=== PATIENT | female | born 1960 ===

== ENCOUNTER 2018-06-03 13:09 | Observation (INO) | payer OTHER ==
[2018-06-03] MEDS ORDERED: Sodium Chloride 0.9% 1,000 ML IV STA (14:17)
--- NOTE | 2018-06-03 14:28 | ED PDOC ---
Syncope/Near Syncope/Dizziness Time Seen by Provider: 06/03/18 13:38 Chief Complaint (Nursing): Dizziness/Lightheaded Chief Complaint (Provider): Dizziness/Lightheaded History Per: Patient History/Exam Limitations: no limitations Onset/Duration Of Symptoms: Persistent (x2 weeks) Current Symptoms Are (Timing): Still Present Additional Complaint(s): 58 year old female arrives to ED with complaints of dizziness, excessive thirst , urine frequency, cough and congestion ongoing for 2 weeks. Patient states she returned from vacation in [place] on 05/29/18 but had an URI with congestion that required saline nebulizer to expectorate during stay. He denies any fever, chest pain, shortness of breath, back pain or dysuria. Of note, patient states she was diagnosed with pre-diabetes in the past but does not take medications for it. PMD: Dr. Royal Azevedo Past Medical History Reviewed: Historical Data, Nursing Documentation, Vital Signs Vital Signs: Last Vital Signs Temp 98.8 F 06/03/18 13:14 Pulse 104 H 06/03/18 13:14 Resp 20 06/03/18 13:14 BP 145/92 H 06/03/18 13:14 Pulse Ox 96 06/03/18 13:14 - Medical History PMH: HTN - Surgical History Surgical History: Denies: No Surg Hx Other surgeries: back cyst removed - Family History Family History: States: Unknown Family Hx - Home Medications Home Medications: Ambulatory Orders Medication Instructions Recorded Olmesartan/Hydrochlorothiazide 1 tab PO DAILY 06/03/18 [Benicar Hct 40-12.5 mg Tablet] - Allergies Allergies/Adverse Reactions: Allergies Allergy/AdvReac Type Severity Reaction Status Date / Time No Known Allergies Allergy Verified 06/03/18 13:16 Review of Systems ROS Statement: Except As Marked, All Systems Reviewed And Found Negative Constitutional: Negative for: Fever ENT: Positive for: Nose Congestion, Other (excessive thirst) Cardiovascular: Negative for: Chest Pain Respiratory: Positive for: Cough. Negative for: Shortness of Breath Genitourinary Female: Positive for: Frequency. Negative for: Dysuria Musculoskeletal: Negative for: Back Pain Neurological: Positive for: Dizziness Physical Exam - Reviewed Nursing Documentation Reviewed: Yes Vital Signs Reviewed: Yes - Physical Exam Appears: Positive for: No Acute Distress Head Exam: Positive for: ATRAUMATIC, NORMAL INSPECTION, NORMOCEPHALIC Skin: Positive for: Normal Color Eye Exam: Positive for: Normal appearance, EOMI, PERRL ENT: Positive for: Other (mild dehydration; dentures) Neck: Positive for: Normal Cardiovascular/Chest: Positive for: Tachycardia (mild) Respiratory: Positive for: Normal Breath Sounds. Negative for: Respiratory Distress Gastrointestinal/Abdominal: Positive for: Normal Exam, Soft. Negative for: Tenderness Extremity: Positive for: Normal ROM (upper/lower). 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 Negative for: Motor/Sensory Deficits - Laboratory Results Result Diagrams: 06/03/18 14:29 06/03/18 14:29 - ECG ECG: Positive for: Interpreted By Me ECG Rhythm: Positive for: Sinus Rhythm, ST/T Changes, Nonspecific Changes Rate: 83 O2 Sat by Pulse Oximetry: 96 (RA) Pulse Ox Interpretation: Normal Medical Decision Making Medical Decision Making: Initial Impression: 58 year old female with dizziness, urine frequency, and polydipsia. Initial Plan: --W/u with IV fluid, EKG, labs, CXR, Accucheck and UA for metabolic syndrome Time: 1419 --Accucheck: 423mg/dL. --CXR: no significant findings. --AG 19 BUN 22 CO2 17 c/w dehydration --UA neg WBC or leuks IVF and insulin initiated PMD Dr Azevedo contacted for disposition D/w resident Dr Marcial for obs admission for glycemic control and diabetic meds initiation Scribe Attestation: Documented by Melida Shaw, acting as a scribe for Aman Hunter III, DO. Provider Scribe Attestation: All medical record entries made by the Scribe were at my direction and personally dictated by me. I have reviewed the chart and agree that the record accurately reflects my personal performance of the history, physical exam, medical decision making, and the department course for this patient. I have also personally directed, reviewed, and agree with the discharge instructions and disposition. Disposition - Clinical Impression Clinical Impression: Diabetes mellitus, new onset, Dizziness, Dehydration, Hyperglycemia - Patient ED Disposition Is Patient to be Admitted: Yes Counseled Patient/Family Regarding: Studies Performed, Diagnosis, Need For Followup - Disposition Disposition Time: 15:10 Condition: STABLE - Pt Status Changed To: Hospital Disposition Of: Observation - POA Present On Arrival: Poor Glycemic Control
[2018-06-03 14:36] LABS: BASO # 0.2 K/uL (0.0-0.2); BASO % 1.3 % (0.0-2.0); EOS # 0.1 K/uL (0.0-0.7); EOS % 0.8 % (0.0-4.0); HEMOGLOBIN 15.8 g/dL (12.0-16.0); LYMPH # 3.3 K/uL (1.0-4.3); LYMPH % 24.2 % (20.0-40.0); MEAN CELL VOLUME 87.2 fl (81.0-99.0); MEAN CORPUSCULAR HEMOGLOBIN 29.1 pg (27.0-31.0); MEAN CORPUSCULAR HGB CONC 33.3 g/dL (33.0-37.0); MEAN PLATELET VOLUME 11.8 fl (7.2-11.7); MONO # 0.9 K/uL (0.0-0.8); MONO % 6.6 % (0.0-10.0); NEUT # 9.1 K/uL (1.8-7.0); NEUT % 67.1 % (50.0-75.0); NRBC % 0.1 % (0.0-0.0); RBC 5.43 Mil/uL (3.80-5.20); RED CELL DISTRIBUTION WIDTH 14.8 % (11.5-14.5); WHITE BLOOD COUNT 13.6 K/uL (4.8-10.8)
[2018-06-03 14:49] LABS: SQUAMOUS EPITHIAL < 1 /hpf (0-5); URINE BILIRUBIN NEGATIVE (NEGATIVE); URINE BLOOD NEGATIVE (NEGATIVE); URINE CLARITY CLEAR (Clear); URINE COLOR YELLOW (YELLOW); URINE GLUCOSE (UA) >=500 mg/dL (Normal); URINE LEUKOCYTE ESTERASE NEG Leu/uL (Negative); URINE PROTEIN NEGATIVE (NEGATIVE); URINE UROBILINOGEN 0.2-1.0 mg/dL (0.2-1.0)
[2018-06-03 14:54] LABS: BLOOD UREA NITROGEN 22 mg/dl (7-17)
[2018-06-03 14:55] LABS: ALB/GLOB RATIO 1.3 (1.0-2.1); ALBUMIN 4.1 g/dL (3.5-5.0); ALT/SGPT 75 U/L (9-52); AST/SGOT 47 U/L (14-36); CALCIUM 9.2 mg/dL (8.4-10.2); GFR AFRICAN-AMERICAN > 60; GFR NON-AFRICAN AMERICAN > 60
[2018-06-03] MEDS ORDERED: Insulin Regular 100 units/ml IVP ONE (14:59)
[2018-06-03] MEDS ORDERED: Insulin Regular 100 units/ml ONE (15:16)
--- NOTE | 2018-06-03 15:31 | RAD ---
Date of service: 06/03/2018 HISTORY: chest pain/ r/o infiltrate COMPARISON: No prior. TECHNIQUE: Chest PA and lateral FINDINGS: LUNGS: No active pulmonary disease. PLEURA: No significant pleural effusion identified. No pneumothorax apparent. CARDIOVASCULAR: No radiographic findings to suggest acute or significant cardiovascular disease. OSSEOUS STRUCTURES: No significant abnormalities. VISUALIZED UPPER ABDOMEN: Normal. OTHER FINDINGS: None. IMPRESSION: No active disease.
[2018-06-03] MEDS ORDERED: Sodium Chloride 0.9% 1,000 ML IV SCH ×2 (16:45→17:37)
[2018-06-03] MEDS ORDERED: Glucagon Recombinant 1 mg Inj IM PRN (17:00)
[2018-06-03] MEDS ORDERED: Dextrose 50% SYRINGE Inj (50 ml) IV PRN (17:00)
--- NOTE | 2018-06-03 17:24 | CP.PCM.HP ---
<Deon Segura - Last Filed: 06/03/18 17:47> History of Present Illness - History of Present Illness History of Present Illness: This is 58 y/o F with PMH of HTN admitted for evaluation and treatment of 3 days history of polyuria and polydipsia. Patient reports no history of Diabetes , polyuria and polydipsia is something new for the patient which is associated with dizziness and weakness. Patient also reports b/l LEs crampping which started around same time as polyuria and polydipsia. Patient denies any LOC, Seizures, chest pain, SOB, abdominal pain, or dysuria. Denies any f/c/n/v/d, sick contact, patient recent travelled to [place], 2 weeks ago where she had URI like symptoms. PMD: Dr. Azevedo PMH: HTN PSH: Cervical lymphadenectomy Allg: NKDA Meds: Benicar 12.5mg daily FH: Denies any FH of DM, HTN or cancers SH: Smokes 6 cig/day since last 30 years. Denies any alcohol or illicit drug use Full Code Emergency contact: Son, Jovani Guan # [phone] ROS: As per HPI ED Course: VS: 145/92, 104HR, Tm 98.8, RR 20, Spo2 96% CBC: WBC 13.6 CMP: 133/4.4. 97/21, 22/0.8, 423 UA neative EKG: Prelim: NSR, Nonspecific ST changes CXR: No acute disease S/p IVF, Insulin 4 U Present on Admission - Present on Admission Any Indicators Present on Admission: No Past Patient History - Past Social History Smoking Status: Light Smoker < 10 Cigarettes Daily - CARDIAC Hx Hypertension: Yes - PSYCHIATRIC Hx Substance Use: No - SURGICAL HISTORY Hx Surgeries: Yes - ANESTHESIA Hx Anesthesia: Yes Hx Anesthesia Reactions: No Meds Home Medications: Home Medication List Medication Instructions Recorded Confirmed Type MetFORMIN [glucoPHAGE] 500 mg PO BID 30 Days #60 tab 06/04/18 Rx Allergies/Adverse Reactions: Allergies Allergy/AdvReac Type Severity Reaction Status Date / Time No Known Allergies Allergy Verified 06/03/18 13:16 Physical Exam - Constitutional Appears: No Acute Distress - Head Exam Head Exam: NORMAL INSPECTION - Eye Exam Eye Exam: EOMI, Normal appearance, PERRL Pupil Exam: NORMAL ACCOMODATION - ENT Exam ENT Exam: Mucous Membranes Moist Additional comments: Right Gum open wound, it has been there for 2 weeks as per patient - Neck Exam Neck exam: Positive for: Normal Inspection - Respiratory Exam Respiratory Exam: Clear to Auscultation Bilateral, NORMAL BREATHING PATTERN. absent: Accessory Muscle Use, Chest Wall Tenderness, Decreased Breath Sounds, Rhonchi, Wheezes, Respiratory Distress, Stridor - Cardiovascular Exam Cardiovascular Exam: REGULAR RHYTHM, +S1, +S2 - GI/Abdominal Exam GI & Abdominal Exam: Normal Bowel Sounds, Soft. absent: Rigid, Tenderness - Extremities Exam Extremities exam: Positive for: normal capillary refill, normal inspection, tenderness, pedal pulses present. Negative for: pedal edema Additional comments: David's sign + - Back Exam Back exam: NORMAL INSPECTION. absent: CVA tenderness (L), CVA tenderness (R) - Neurological Exam Neurological exam: Alert, CN II-XII Intact, Normal Gait, Oriented x3 - Psychiatric Exam Psychiatric exam: Normal Affect - Skin Skin Exam: Dry, Intact, Normal Color, Warm Results - Vital Signs Recent Vital Signs: Last Vital Signs Temp 97 F L 06/03/18 15:19 Pulse 83 06/03/18 16:42 Resp 19 06/03/18 15:19 BP 160/90 H 06/03/18 15:19 Pulse Ox 96 06/03/18 16:42 - Labs Result Diagrams: 06/03/18 14:29 06/03/18 14:29 Labs: Laboratory Results - last 24 hr 06/03/18 06/03/18 06/03/18 14:18 14:29 14:29 WBC 13.6 H RBC 5.43 H Hgb 15.8 Hct 47.4 H MCV 87.2 MCH 29.1 MCHC 33.3 RDW 14.8 H Plt Count 220 MPV 11.8 H Neut % (Auto) 67.1 Lymph % (Auto) 24.2 [place] % (Auto) 6.6 Eos % (Auto) 0.8 Baso % (Auto) 1.3 Neut # (Auto) 9.1 H Lymph # (Auto) 3.3 [place] # (Auto) 0.9 H Eos # (Auto) 0.1 Baso # (Auto) 0.2 Sodium 133 Potassium 4.4 Chloride 97 L Carbon Dioxide 21 L Anion Gap 19 BUN 22 H Creatinine 0.8 Est GFR ( Amer) > 60 Est GFR (Non-Af Amer) > 60 POC Glucose (mg/dL) 423 H* Random Glucose 509 H* Calcium 9.2 Total Bilirubin 0.7 AST 47 H ALT 75 H Alkaline Phosphatase 97 Troponin I < 0.0120 Total Protein 7.3 Albumin 4.1 Globulin 3.2 Albumin/Globulin Ratio 1.3 Urine Color Urine Clarity Urine pH Ur Specific [place] Urine Protein Urine Glucose (UA) Urine Ketones Urine Blood Urine Nitrate Urine Bilirubin Urine Urobilinogen Ur Leukocyte Esterase Urine RBC (Auto) Urine Microscopic WBC Ur Squamous Epith Cells 06/03/18 06/03/18 14:40 16:22 WBC RBC Hgb Hct MCV MCH MCHC RDW Plt Count MPV Neut % (Auto) Lymph % (Auto) [place] % (Auto) Eos % (Auto) Baso % (Auto) Neut # (Auto) Lymph # (Auto) [place] # (Auto) Eos # (Auto) Baso # (Auto) Sodium Potassium Chloride Carbon Dioxide Anion Gap BUN Creatinine Est GFR ( Amer) Est GFR (Non-Af Amer) POC Glucose (mg/dL) 230 H Random Glucose Calcium Total Bilirubin AST ALT Alkaline Phosphatase Troponin I Total Protein Albumin Globulin Albumin/Globulin Ratio Urine Color Yellow Urine Clarity Clear Urine pH 6.0 Ur Specific [place] 1.036 H Urine Protein Negative Urine Glucose (UA) >=500 Urine Ketones Trace Urine Blood Negative Urine Nitrate Negative Urine Bilirubin Negative Urine Urobilinogen 0.2-1.0 Ur Leukocyte Esterase Neg Urine RBC (Auto) 2 Urine Microscopic WBC < 1 Ur Squamous Epith Cells < 1 Assessment & Plan - Assessment and Plan (Free Text) Assessment: A/P: 58 y/o F with PMH of HTN admitted for evaluation and treatment of 3 days history of polyuria and polydipsia associated with dizziness and b/l LEs cramping. New onset of diabetes mellitus type II - Admit to [facility] - Insulin regular, Moderate dose coverage scale , ACHS, Accuchecks - Hypoglycemia protocol - C/w IVF - Follow up BMP - Follow up HbA1C and AM labs - Monitor Blood sugar Hypertension - HCTZ 12.5mg PO daily and Cozaar 100mg daily Lower extremities pain and cramping - Follow up Doppler LEs U/S - Follow up TSH, lipid panel, and BMP DVT Prophylaxis - Lovenox 40mg SC Full Code Emergency contact: Son, Jovani Guan # [phone] <Royal Azevedo - Last Filed: 06/07/18 06:51> Results - Vital Signs Recent Vital Signs: Last Vital Signs Temp 98.1 F 06/04/18 17:00 Pulse 86 06/04/18 17:00 Resp 18 06/04/18 17:00 BP 152/98 H 06/04/18 17:00 Pulse Ox 96 06/04/18 17:00 - Labs Result Diagrams: 06/04/18 05:55 06/04/18 05:55 Attending/Attestation - Attestation I have personally seen and examined this patient.: Yes I have fully participated in the care of the patient.: Yes I have reviewed all pertinent clinical information: Yes
[2018-06-03] MEDS: Sodium Chloride 0.9% 1,000 ML IV SCH ×2 (19:57→23:09)
[2018-06-03] MEDS ORDERED: Labetalol 5 mg/ml Inj 20ML IVP STA (20:13)
[2018-06-03 21:14] LABS: BLOOD UREA NITROGEN 20 mg/dl (7-17); CALCIUM 8.4 mg/dL (8.4-10.2); GFR AFRICAN-AMERICAN > 60; GFR NON-AFRICAN AMERICAN > 60
[2018-06-03] MEDS: Insulin Regular 100 units/ml SC SCH (22:12)
[2018-06-04] MEDS: Sodium Chloride 0.9% 1,000 ML IV SCH (01:42)
--- NOTE | 2018-06-04 06:11 | CARD ---
APPROVED REPORT Date of service: 06/03/2018 <Conclusion> Normal sinus rhythm Nonspecific ST abnormality Abnormal ECG
[2018-06-04 06:35] LABS: BASO # 0.1 K/uL (0.0-0.2); BASO % 0.7 % (0.0-2.0); EOS # 0.3 K/uL (0.0-0.7); HEMOGLOBIN 14.9 g/dL (12.0-16.0); LYMPH # 3.6 K/uL (1.0-4.3); LYMPH % 32.4 % (20.0-40.0); MEAN CELL VOLUME 87.6 fl (81.0-99.0); MEAN CORPUSCULAR HEMOGLOBIN 29.1 pg (27.0-31.0); MEAN CORPUSCULAR HGB CONC 33.3 g/dL (33.0-37.0); MONO # 0.7 K/uL (0.0-0.8); MONO % 6.7 % (0.0-10.0); NEUT # 6.3 K/uL (1.8-7.0); NEUT % 57.2 % (50.0-75.0); NRBC % 0.1 % (0.0-0.0); RBC 5.11 Mil/uL (3.80-5.20); RED CELL DISTRIBUTION WIDTH 14.6 % (11.5-14.5); WHITE BLOOD COUNT 11.1 K/uL (4.8-10.8)
[2018-06-04] MEDS: Insulin Regular 100 units/ml SC SCH ×3 (06:45→17:02)
[2018-06-04 06:51] LABS: LDL CHOLESTEROL 94 mg/dL (0-129)
[2018-06-04 07:19] LABS: ALB/GLOB RATIO 1.2 (1.0-2.1); ALBUMIN 3.2 g/dL (3.5-5.0); ALT/SGPT 77 U/L (9-52); AST/SGOT 64 U/L (14-36); BLOOD UREA NITROGEN 15 mg/dl (7-17); CALCIUM 8.3 mg/dL (8.4-10.2); GFR AFRICAN-AMERICAN > 60; GFR NON-AFRICAN AMERICAN > 60; HDL CHOLESTEROL 43 MG/DL (30-70)
[2018-06-04 08:07] VITALS: O2SAT 96
[2018-06-04] MEDS ORDERED: Enoxaparin 40 mg Syringe SC SCH (09:00)
[2018-06-04] MEDS ORDERED: Patient's Own Med (Olmesartan/Hydrochlorothiazide [Benicar Hct 40-12.5 Mg Tablet] 1 TAB) PO SCH (09:00)
[2018-06-04] MEDS ORDERED: Pneumococcal 23-Valent Vaccine IM ONE (09:00)
--- NOTE | 2018-06-04 10:51 | US ---
Date of service: 06/03/2018 PROCEDURE: Duplex ultrasound of the bilateral lower extremity arteries. HISTORY: severe bilateral lower extremity pain COMPARISON: None available. TECHNIQUE: Grayscale and duplex Doppler evaluation of the bilateral common femoral, superficial femoral, popliteal, posterior tibial and dorsalis pedis arteries was performed.. FINDINGS: RIGHT LOWER EXTREMITY: RIGHT COMMON FEMORAL ARTERY: Widely patent. Maximal flow velocity of 114 cm/s. RIGHT SUPERFICIAL FEMORAL ARTERY: Widely patent. Maximal flow velocity of 129.4 cm/s. RIGHT POPLITEAL ARTERY:Widely patent. Maximal flow velocity of 101.6 cm/s. RIGHT POSTERIOR TIBIAL ARTERY: Widely patent Maximal flow velocity of 92.4 cm/s. RIGHT DORSALIS PEDIS ARTERY: Widely patent. Maximal flow velocity of 20.4 cm/s. LEFT LOWER EXTREMITY: LEFT COMMON FEMORAL ARTERY: Widely patent. Maximal flow velocity of 96.4 cm/s. LEFT SUPERFICIAL FEMORAL ARTERY: Widely patent. Maximal flow velocity of 120.3 cm/s. LEFT POPLITEAL ARTERY:Widely patent. Maximal flow velocity of 104 cm/s. LEFT POSTERIOR TIBIAL ARTERY: Widely patent. Maximal flow velocity of 87.5 cm/s. LEFT DORSALIS PEDIS ARTERY: Widely patent. Maximal flow velocity of 89.4 cm/s. OTHER FINDINGS: None. IMPRESSION: Mildly diminished flow, monophasic waveform to the right foot/ dorsalis pedis artery. Otherwise unremarkable study. Concordant results (preliminary interpretation) provided by [facility]. Procedure Completed: 18:42 Preliminary ([facility]) Report: Dictated and Authenticated: 20:43. Final Interpretation: 10:44. June 04, 2018.
--- NOTE | 2018-06-04 10:52 | US ---
Date of service: 06/03/2018 PROCEDURE: Bilateral lower extremity venous duplex Doppler. HISTORY: severe bilateral lower extremity pain COMPARISON: None available. TECHNIQUE: Bilateral common femoral, superficial femoral, popliteal and posterior tibial veins were evaluated. Flow was assessed with color Doppler, compressibility, assessment of phasic flow and augmentation response. FINDINGS: COMMON FEMORAL VEIN: Right CFV: Unremarkable. Left CFV: Unremarkable. SUPERFICIAL FEMORAL VEIN: Right SFV: Unremarkable. Left SFV: Unremarkable. POPLITEAL VEIN: Right Popliteal: Unremarkable. Left Popliteal: Unremarkable. POSTERIOR TIBIAL VEIN: Right PTV: Unremarkable. Left PTV: Unremarkable. OTHER FINDINGS: None. IMPRESSION: No evidence of deep venous thrombosis. Concordant results (preliminary interpretation) provided by [facility]. Procedure Completed: 18:36 Preliminary ([facility]) Report: Dictated and Authenticated: 20:41 Final Interpretation: 10:45. June 04, 2018.
--- NOTE | 2018-06-04 15:45 | CP.PCM.DIS ---
<Deon Segura - Last Filed: 06/04/18 16:09> Provider - Provider Date of Admission: 06/03/18 15:12 Attending physician: Royal Azevedo MD Primary care physician: Dr. Azevedo Consults: None Time Spent in preparation of Discharge (in minutes): 40 Diagnosis - Discharge Diagnosis (1) New onset type 2 diabetes mellitus Status: Acute Comment: HBA1C 12.6. Start Metformin 500mg BID (2) Hypertension Status: Chronic Hospital Course - Lab Results Lab Results: Most Recent Lab Values WBC 11.1 K/uL (4.8-10.8) H 06/04/18 05:55 RBC 5.11 Mil/uL (3.80-5.20) 06/04/18 05:55 Hgb 14.9 g/dL (12.0-16.0) 06/04/18 05:55 Hct 44.7 % (34.0-47.0) 06/04/18 05:55 MCV 87.6 fl (81.0-99.0) 06/04/18 05:55 MCH 29.1 pg (27.0-31.0) 06/04/18 05:55 MCHC 33.3 g/dL (33.0-37.0) 06/04/18 05:55 RDW 14.6 % (11.5-14.5) H 06/04/18 05:55 Plt Count 191 K/uL (130-400) 06/04/18 05:55 MPV 12.0 fl (7.2-11.7) H 06/04/18 05:55 Neut % (Auto) 57.2 % (50.0-75.0) 06/04/18 05:55 Lymph % (Auto) 32.4 % (20.0-40.0) 06/04/18 05:55 [place] % (Auto) 6.7 % (0.0-10.0) 06/04/18 05:55 Eos % (Auto) 3.0 % (0.0-4.0) 06/04/18 05:55 Baso % (Auto) 0.7 % (0.0-2.0) 06/04/18 05:55 Neut # (Auto) 6.3 K/uL (1.8-7.0) 06/04/18 05:55 Lymph # (Auto) 3.6 K/uL (1.0-4.3) 06/04/18 05:55 [place] # (Auto) 0.7 K/uL (0.0-0.8) 06/04/18 05:55 Eos # (Auto) 0.3 K/uL (0.0-0.7) 06/04/18 05:55 Baso # (Auto) 0.1 K/uL (0.0-0.2) 06/04/18 05:55 Sodium 136 mmol/l (132-148) 06/04/18 05:55 Potassium 4.4 MMOL/L (3.6-5.0) 06/04/18 05:55 Chloride 102 mmol/L (98-107) 06/04/18 05:55 Carbon Dioxide 25 mmol/L (22-30) 06/04/18 05:55 Anion Gap 13 (10-20) 06/04/18 05:55 BUN 15 mg/dl (7-17) 06/04/18 05:55 Creatinine 0.7 mg/dl (0.7-1.2) 06/04/18 05:55 Est GFR ( Amer) > 60 06/04/18 05:55 Est GFR (Non-Af Amer) > 60 06/04/18 05:55 POC Glucose (mg/dL) 383 mg/dL (65-110) H 06/04/18 10:45 Random Glucose 307 mg/dL (65-105) H 06/04/18 05:55 Hemoglobin A1c 12.6 % (4.2-6.5) H 06/04/18 05:55 Calcium 8.3 mg/dL (8.4-10.2) L 06/04/18 05:55 Phosphorus 2.9 mg/dl (2.5-4.5) 06/03/18 20:12 Magnesium 1.7 MG/DL (1.6-2.3) 06/03/18 20:12 Total Bilirubin 0.9 mg/dl (0.2-1.3) 06/04/18 05:55 AST 64 U/L (14-36) H D 06/04/18 05:55 ALT 77 U/L (9-52) H 06/04/18 05:55 Alkaline Phosphatase 72 U/L (38-126) 06/04/18 05:55 Troponin I < 0.0120 ng/mL (0.00-0.120) 06/03/18 14:29 Total Protein 6.0 G/DL (6.3-8.2) L 06/04/18 05:55 Albumin 3.2 g/dL (3.5-5.0) L D 06/04/18 05:55 Globulin 2.8 gm/dL (2.2-3.9) 06/04/18 05:55 Albumin/Globulin Ratio 1.2 (1.0-2.1) 06/04/18 05:55 Triglycerides 122 mg/DL (0-149) 06/04/18 05:55 Cholesterol 155 mg/dL (0-199) 06/04/18 05:55 LDL Cholesterol Direct 94 mg/dL (0-129) 06/04/18 05:55 HDL Cholesterol 43 MG/DL (30-70) 06/04/18 05:55 TSH 3rd Generation 1.00 mIU/ML (0.46-4.68) 06/04/18 05:55 Urine Color Yellow (YELLOW) 06/03/18 14:40 Urine Clarity Clear (Clear) 06/03/18 14:40 Urine pH 6.0 (5.0-8.0) 06/03/18 14:40 Ur Specific [facility] 1.036 (1.003-1.030) H 06/03/18 14:40 Urine Protein Negative mg/dL (NEGATIVE) 06/03/18 14:40 Urine Glucose (UA) >=500 mg/dL (Normal) 06/03/18 14:40 Urine Ketones Trace mg/dL (NEGATIVE) 06/03/18 14:40 Urine Blood Negative (NEGATIVE) 06/03/18 14:40 Urine Nitrate Negative (NEGATIVE) 06/03/18 14:40 Urine Bilirubin Negative (NEGATIVE) 06/03/18 14:40 Urine Urobilinogen 0.2-1.0 mg/dL (0.2-1.0) 06/03/18 14:40 Ur Leukocyte Esterase Neg [place]/uL (Negative) 06/03/18 14:40 Urine RBC (Auto) 2 /hpf (0-3) 06/03/18 14:40 Urine Microscopic WBC < 1 /hpf (0-5) 06/03/18 14:40 Ur Squamous Epith Cells < 1 /hpf (0-5) 06/03/18 14:40 - Hospital Course Hospital Course: 58 y/o Female with PMH of hypertension admitted for evaluation and treatment of polyuria, polydipsia and dehydration. Patient was found to have high blood sugar and HBA1C of 12.6. Patient was c/o b/l LEs cramping, Doppler LEs U/S A and V B/l negative for any DVT. Patient was started on insulin, she ramained stable in hospital, symptoms resolved. Patient is ambulating, tolerating PO intake, see by plating foreman, and nurse explained how to use blood sugar meter to check daily blood sugars. Patient is medically stable, and discharged home with following instructions: START Metformin 500 BID (Side effects explained), LOG blood sugars at home (Bring logs to PMD), Follow up with PMD, educated abut diabetes, encouraged life style modifications, healthy diet and exercise. C/w home medications START: Metformin 500 BID Discharge Exam - Head Exam Head Exam: NORMAL INSPECTION - Eye Exam Eye Exam: Normal appearance Pupil Exam: NORMAL ACCOMODATION - ENT Exam ENT Exam: Mucous Membranes Moist - Respiratory Exam Respiratory Exam: Clear to PA & Lateral, NORMAL BREATHING PATTERN. absent: Accessory Muscle Use, Chest Wall Tenderness, Decreased Breath Sounds, Rales, Rhonchi, Wheezes, Respiratory Distress, Stridor - Cardiovascular Exam Cardiovascular Exam: REGULAR RHYTHM, +S1, +S2 - GI/Abdominal Exam GI & Abdominal Exam: Normal Bowel Sounds, Soft. absent: Guarding, Hernia, Rebound, Tenderness - Extremities Exam Extremities exam: normal capillary refill, normal inspection, pedal pulses present - Back Exam Back exam: absent: CVA tenderness (L), CVA tenderness (R) - Neurological Exam Neurological exam: Alert, CN II-XII Intact, Normal Gait, Oriented x3, Reflexes Normal - Psychiatric Exam Psychiatric exam: Normal Affect - Skin Skin Exam: Dry, Intact, Normal Color, Warm Discharge Plan - Discharge Medications Prescriptions: MetFORMIN [glucoPHAGE] 500 mg PO BID 30 Days #60 tab - Follow Up Plan Condition: STABLE Disposition: HOME/ ROUTINE Instructions: Type 2 Diabetes, Blood Glucose Monitoring, Treatment for Type 2 Diabetes, Diabetic Meal Planning , Diabetes and Diet Additional Instructions: Follow up with Dr. Azevedo in 1 week after discharge Referrals: Royal Azevedo MD [Family Provider] - <Bradley Mcneill - Last Filed: 06/07/18 06:50> Provider - Provider Date of Admission: 06/03/18 15:12 Attending physician: Royal Azevedo MD Hospital Course - Lab Results Lab Results: Most Recent Lab Values WBC 11.1 K/uL (4.8-10.8) H 06/04/18 05:55 RBC 5.11 Mil/uL (3.80-5.20) 06/04/18 05:55 Hgb 14.9 g/dL (12.0-16.0) 06/04/18 05:55 Hct 44.7 % (34.0-47.0) 06/04/18 05:55 MCV 87.6 fl (81.0-99.0) 06/04/18 05:55 MCH 29.1 pg (27.0-31.0) 06/04/18 05:55 MCHC 33.3 g/dL (33.0-37.0) 06/04/18 05:55 RDW 14.6 % (11.5-14.5) H 06/04/18 05:55 Plt Count 191 K/uL (130-400) 06/04/18 05:55 MPV 12.0 fl (7.2-11.7) H 06/04/18 05:55 Neut % (Auto) 57.2 % (50.0-75.0) 06/04/18 05:55 Lymph % (Auto) 32.4 % (20.0-40.0) 06/04/18 05:55 [place] % (Auto) 6.7 % (0.0-10.0) 06/04/18 05:55 Eos % (Auto) 3.0 % (0.0-4.0) 06/04/18 05:55 Baso % (Auto) 0.7 % (0.0-2.0) 06/04/18 05:55 Neut # (Auto) 6.3 K/uL (1.8-7.0) 06/04/18 05:55 Lymph # (Auto) 3.6 K/uL (1.0-4.3) 06/04/18 05:55 [place] # (Auto) 0.7 K/uL (0.0-0.8) 06/04/18 05:55 Eos # (Auto) 0.3 K/uL (0.0-0.7) 06/04/18 05:55 Baso # (Auto) 0.1 K/uL (0.0-0.2) 06/04/18 05:55 Sodium 136 mmol/l (132-148) 06/04/18 05:55 Potassium 4.4 MMOL/L (3.6-5.0) 06/04/18 05:55 Chloride 102 mmol/L (98-107) 06/04/18 05:55 Carbon Dioxide 25 mmol/L (22-30) 06/04/18 05:55 Anion Gap 13 (10-20) 06/04/18 05:55 BUN 15 mg/dl (7-17) 06/04/18 05:55 Creatinine 0.7 mg/dl (0.7-1.2) 06/04/18 05:55 Est GFR ( Amer) > 60 06/04/18 05:55 Est GFR (Non-Af Amer) > 60 06/04/18 05:55 POC Glucose (mg/dL) 303 mg/dL (65-110) H 06/04/18 16:44 Random Glucose 307 mg/dL (65-105) H 06/04/18 05:55 Hemoglobin A1c 12.6 % (4.2-6.5) H 06/04/18 05:55 Calcium 8.3 mg/dL (8.4-10.2) L 06/04/18 05:55 Phosphorus 2.9 mg/dl (2.5-4.5) 06/03/18 20:12 Magnesium 1.7 MG/DL (1.6-2.3) 06/03/18 20:12 Total Bilirubin 0.9 mg/dl (0.2-1.3) 06/04/18 05:55 AST 64 U/L (14-36) H D 06/04/18 05:55 ALT 77 U/L (9-52) H 06/04/18 05:55 Alkaline Phosphatase 72 U/L (38-126) 06/04/18 05:55 Troponin I < 0.0120 ng/mL (0.00-0.120) 06/03/18 14:29 Total Protein 6.0 G/DL (6.3-8.2) L 06/04/18 05:55 Albumin 3.2 g/dL (3.5-5.0) L D 06/04/18 05:55 Globulin 2.8 gm/dL (2.2-3.9) 06/04/18 05:55 Albumin/Globulin Ratio 1.2 (1.0-2.1) 06/04/18 05:55 Triglycerides 122 mg/DL (0-149) 06/04/18 05:55 Cholesterol 155 mg/dL (0-199) 06/04/18 05:55 LDL Cholesterol Direct 94 mg/dL (0-129) 06/04/18 05:55 HDL Cholesterol 43 MG/DL (30-70) 06/04/18 05:55 TSH 3rd Generation 1.00 mIU/ML (0.46-4.68) 06/04/18 05:55 Urine Color Yellow (YELLOW) 06/03/18 14:40 Urine Clarity Clear (Clear) 06/03/18 14:40 Urine pH 6.0 (5.0-8.0) 06/03/18 14:40 Ur Specific [facility] 1.036 (1.003-1.030) H 06/03/18 14:40 Urine Protein Negative mg/dL (NEGATIVE) 06/03/18 14:40 Urine Glucose (UA) >=500 mg/dL (Normal) 06/03/18 14:40 Urine Ketones Trace mg/dL (NEGATIVE) 06/03/18 14:40 Urine Blood Negative (NEGATIVE) 06/03/18 14:40 Urine Nitrate Negative (NEGATIVE) 06/03/18 14:40 Urine Bilirubin Negative (NEGATIVE) 06/03/18 14:40 Urine Urobilinogen 0.2-1.0 mg/dL (0.2-1.0) 06/03/18 14:40 Ur Leukocyte Esterase Neg [place]/uL (Negative) 06/03/18 14:40 Urine RBC (Auto) 2 /hpf (0-3) 06/03/18 14:40 Urine Microscopic WBC < 1 /hpf (0-5) 06/03/18 14:40 Ur Squamous Epith Cells < 1 /hpf (0-5) 06/03/18 14:40 Attending/Attestation - Attestation I have personally seen and examined this patient.: Yes I have fully participated in the care of the patient.: Yes I have reviewed all pertinent clinical information, including history, physical exam and plan: Yes
[2018-06-04 16:44] VITALS: BP 152/98; PULSE 86; RESP 18; TEMP 98.1
== END 2018-06-04 17:45 | disposition home or self-care (01) ==
LOC: H.ER 13:09 → H.ERHOLD 15:12 → H.MEDSURG1 21:25
PROVIDERS: ADMIT Family Medicine; ATTEND Family Medicine
DX: E11.65 Type 2 diabetes mellitus with hyperglycemia (principal); E86.0 Dehydration; I10 Essential (primary) hypertension; F17.210 Nicotine dependence, cigarettes, uncomplicated; Z23 Encounter for immunization
CPT/HCPCS: 36415; 71046; 80053; 80061; 81003; 82948; 83036; 83735; 84100; 84443; 84484; 85025; 90471; 90732; 93005; 93925; 93970; 96361; 96372; 96374; 96375; 99285; G0378; J1650; J7030